=== PATIENT | female | born 1980 | race African-American/Black ===

== ENCOUNTER 2017-10-08 17:06 | Observation (INO) | payer MEDICARE, MEDICAID ==
[~2017-10-08] VITALS: Ht 157.5 cm; Wt 68.4 kg
[2017-10-08] MEDS ORDERED: ondansetron/PF 4mg/2ml inj IV ONE (18:30)
[2017-10-08] MEDS ORDERED: normal saline 1000ML IV soln IVB ONE ×2 (18:30)
[2017-10-08] MEDS ORDERED: pantoprazole 40 MG vial IV ONE (18:35)
[2017-10-08] MEDS ORDERED: ondansetron 4mg rapidly disintigrating tab PO ONE (19:10)
[2017-10-08 19:30] LABS: ALANINE AMINOTRANSFERASE 20 U/L (12-78); ALBUMIN 3.9 G/DL (3.4-5.0); ALBUMIN/GLOBULIN RATIO 0.8 (1.1-1.5); ALKALINE PHOSPHATASE 86 IU/L (46-116); ASPARTATE AMINO TRANSFERASE 36 U/L (10-37); BILIRUBIN,TOTAL 0.3 MG/DL (0.1-1.0); BLOOD UREA NITROGEN 17 MG/DL (7-18); CALCIUM 8.8 MG/DL (8.5-10.1); CHLORIDE 104 MMOL/L (99-107); CREATININE 0.81 MG/DL (0.40-0.90); ETHANOL 0.085 GM/DL (0.0-0.010); GLUCOSE 53 MG/DL (70-104); LIPASE 106 U/L (73-393); POTASSIUM 4.3 MMOL/L (3.5-5.1); SODIUM 140 MMOL/L (135-145); TOTAL PROTEIN 8.7 G/DL (6.4-8.2); eGFR 79 ML/MIN
[2017-10-08 19:35] LABS: RED BLOOD COUNT 5.07 X10'6 (4.20-5.60); RETICULOCYTE % (AUTO) 2.9 % (0.5-1.5)
[2017-10-08 19:41] LABS: ANION GAP 22 (8-16)
[2017-10-08 19:44] LABS: TOTAL CARBON DIOXIDE 13.8 MMOL/L (24-32)
[2017-10-08] MEDS ORDERED: iohexol 300mg/ml 100ml inj. ONE (19:59)
[2017-10-08 20:10] LABS: BASOPHILS # (AUTO) 0.1 X10'3 (0-0.2); BASOPHILS % (AUTO) 0.5 % (0-1); EOSINOPHILS # (AUTO) 0.4 X10'3 (0-0.9); EOSINOPHILS % (AUTO) 2.1 % (0-6); HEMATOCRIT 24.5 % (35.0-45.0); HEMOGLOBIN 7.1 g/dl (12.0-16.0); LYMPHOCYTES # (AUTO) 3.1 X10'3 (1.1-4.8); LYMPHOCYTES % (AUTO) 18.1 % (21-51); MEAN CORPUSCULAR HEMOGLOBIN 15.3 PG (27.0-31.0); MEAN CORPUSCULAR VOLUME 52.9 FL (78-98); MEAN PLATELET VOLUME 7.7 FL (7.4-10.4); MONOCYTES # (AUTO) 0.6 X10'3 (0-0.9); MONOCYTES % (AUTO) 3.3 % (2-12); NEUTROPHILS # (AUTO) 12.9 X10'3 (1.8-7.7); PLATELET COUNT 111 X10'3 (140-440); RED BLOOD COUNT 4.62 X10'6 (4.20-5.60); RED CELL DISTRIBUTION WIDTH 24.4 % (11.5-14.5); WHITE BLOOD COUNT 16.9 X10'3 (4.5-11.0)
[2017-10-08 20:21] LABS: PARTIAL THROMBOPLASTIN TIME 25 SECONDS (22-32); PROTHROMBIN TIME 10.1 SECONDS (9.0-12.0)
[2017-10-08 20:23] LABS: HCG SERUM QL NEGATIVE
[2017-10-08 20:26] LABS: CLARITY,URINE CLEAR (Clear); COLOR,URINE YELLOW (Yellow); GLUCOSE, URINE NEGATIVE (Neg); KETONES,URINE 40 mg/dl (Neg); LEUKOCYTE ESTERASE ,URINE NEGATIVE (Neg); NITRITES, URINE NEGATIVE (Neg); OCCULT BLOOD,URINE NEGATIVE (Neg); PH,URINE 5.5 (4.8-8.0); PROTEIN,URINE NEGATIVE (Neg); UROBILINOGEN,URINE 0.2 E.U/dL (0.2-1.0)
[2017-10-08 20:35] LABS: UA COLLECTION TYPE STRAIGHT CATH; URINE AMPHETAMINE SCREEN POSITIVE (Neg); URINE BARBITUATE SCREEN NEGATIVE (Neg); URINE BENZODIAZEPINES SCREEN NEGATIVE (Neg); URINE CANNABINOID SCREEN POSITIVE (Neg); URINE COCAINE SCREEN NEGATIVE (Neg); URINE METHADONE SCREEN NEGATIVE (Neg); URINE OPIATE SCREEN NEGATIVE (Neg); URINE PHENCYCLIDINE SCREEN NEGATIVE (Neg)
[2017-10-08 20:50] LABS: PLATELET ESTIMATE DECREASED
[2017-10-08 20:51] LABS: ANISOCYTOSIS 3+; HYPOCHROMASIA 3+; LARGE PLATELETS MODERATE
[2017-10-08 20:52] LABS: MICROCYTOSIS 3+
[2017-10-08 20:53] LABS: TARGET CELLS FEW
[2017-10-08 20:54] LABS: POLYCHROMASIA FEW; SCHISTOCYTES FEW
[2017-10-08] MEDS ORDERED: dextrose 50%-water 50ml dispensing syringe IV ONE ×2 (21:28→21:35)
[2017-10-08] MEDS ORDERED: LORazepam 2 mg/ml vial IV ONE (22:05)
[2017-10-08] MEDS ORDERED: normal saline 1000ml 1,000 ML IV SCH (23:29)
[2017-10-08] MEDS ORDERED: mag hydrox/Alum hydrox/simeth 30ml oral suspension PO PRN (23:30)
[2017-10-08] MEDS ORDERED: ondansetron/PF 4mg/2ml inj IV PRN (23:30)
[2017-10-08] MEDS ORDERED: magnesium hydroxide 30ml (MOM) UD suspension PO PRN (23:30)
[2017-10-08] MEDS ORDERED: acetaminophen 325mg tablet PO PRN (23:30)
[2017-10-08] MEDS ORDERED: LORazepam 2 mg/ml vial IV PRN (23:35)
[2017-10-08] MEDS: morphine 4 MG/ML inj SYRINge IV PRN (23:49)
[2017-10-09 00:30] VITALS: BP 134/79
[2017-10-09] MEDS ORDERED: HYDROcodone/acetaminophen 10/325mg tab PO PRN (01:55)
[2017-10-09 03:00] VITALS: BP 125/65
[2017-10-09] MEDS: morphine 4 MG/ML inj SYRINge IV PRN (03:37)
[2017-10-09 05:51] LABS: BASOPHILS # (AUTO) 0.1 X10'3 (0-0.2); BASOPHILS % (AUTO) 0.8 % (0-1); EOSINOPHILS # (AUTO) 0.3 X10'3 (0-0.9); EOSINOPHILS % (AUTO) 2.4 % (0-6); LYMPHOCYTES # (AUTO) 4.8 X10'3 (1.1-4.8); LYMPHOCYTES % (AUTO) 35.3 % (21-51); MEAN CORPUSCULAR HEMOGLOBIN 15.3 PG (27.0-31.0); MEAN CORPUSCULAR VOLUME 52.8 FL (78-98); MEAN PLATELET VOLUME 8.1 FL (7.4-10.4); MONOCYTES # (AUTO) 0.5 X10'3 (0-0.9); MONOCYTES % (AUTO) 3.5 % (2-12); NEUTROPHILS # (AUTO) 7.9 X10'3 (1.8-7.7); PLATELET COUNT 95 X10'3 (140-440); RED BLOOD COUNT 3.94 X10'6 (4.20-5.60); RED CELL DISTRIBUTION WIDTH 24.4 % (11.5-14.5); WHITE BLOOD COUNT 13.6 X10'3 (4.5-11.0)
[2017-10-09 06:19] LABS: ALANINE AMINOTRANSFERASE 20 U/L (12-78); ALBUMIN 3.2 G/DL (3.4-5.0); ALBUMIN/GLOBULIN RATIO 0.9 (1.1-1.5); ALKALINE PHOSPHATASE 69 IU/L (46-116); ANION GAP 12 (8-16); ASPARTATE AMINO TRANSFERASE 30 U/L (10-37); BILIRUBIN,TOTAL 0.5 MG/DL (0.1-1.0); BLOOD UREA NITROGEN 12 MG/DL (7-18); BUN/CREATININE RATIO 13.6 (6.6-38.0); CHLORIDE 106 MMOL/L (99-107); CREATININE 0.88 MG/DL (0.40-0.90); GLUCOSE 126 MG/DL (70-104); POTASSIUM 3.5 MMOL/L (3.5-5.1); SODIUM 137 MMOL/L (135-145); TOTAL CARBON DIOXIDE 18.7 MMOL/L (24-32); TOTAL PROTEIN 6.8 G/DL (6.4-8.2); eGFR 87 ML/MIN
[2017-10-09 06:37] LABS: HEMATOCRIT 20.8 % (35.0-45.0)
[2017-10-09 06:39] LABS: PLATELET ESTIMATE DECREASED
[2017-10-09 06:41] LABS: ANISOCYTOSIS 3+; HYPOCHROMASIA 2+; MICROCYTOSIS 3+; POLYCHROMASIA FEW
[2017-10-09 06:42] LABS: ELLIPTOCYTES FEW; STOMATOCYTES 2+
== END 2017-10-09 06:30 | disposition left against medical advice (07) ==
LOC: ER 17:07 → ED HOLD 23:29 → PCU 3S 10-09 00:30
PROVIDERS: ADMIT Internal Medicine; ATTEND Internal Medicine
DX: D57.1 Sickle-cell disease without crisis (principal); F17.210 Nicotine dependence, cigarettes, uncomplicated; F12.90 Cannabis use, unspecified, uncomplicated; F15.90 Other stimulant use, unspecified, uncomplicated; R41.82 Altered mental status, unspecified; E87.2 Acidosis; K92.2 Gastrointestinal hemorrhage, unspecified; F10.129 Alcohol abuse with intoxication, unspecified; Z86.2 Personal history of diseases of the blood and blood-forming organs and certain disorders involving the immune mechanism
CPT/HCPCS: 36415; 70450; 71045; 74177; 80053; 80305; 80320; 80329; 81003; 82948; 83605; 83690; 84145; 84443; 84703; 85025; 85610; 85730; 86885; 86900; 86901; 87040; 87070; 87077; 87186; 96361; 96374; 96375; 96376; 99285; A6266; C9113; G0378; J2060; J2270; J2405; J7030; Q9967; 85045

== ENCOUNTER 2017-10-09 12:29 | Emergency (ER) | payer MEDICARE, MEDICAID ==
[~2017-10-09] VITALS: Ht 157.5 cm; Wt 72.2 kg
[2017-10-09 15:47] VITALS: BP 121/79
[2017-10-09 16:06] LABS: BASOPHILS % (AUTO) 0.4 % (0-1); EOSINOPHILS # (AUTO) 0.2 X10'3 (0-0.9); EOSINOPHILS % (AUTO) 1.9 % (0-6); HEMATOCRIT 22.7 % (35.0-45.0); LYMPHOCYTES # (AUTO) 3.7 X10'3 (1.1-4.8); LYMPHOCYTES % (AUTO) 32.9 % (21-51); MEAN CORPUSCULAR HEMOGLOBIN 15.3 PG (27.0-31.0); MEAN CORPUSCULAR VOLUME 52.7 FL (78-98); MEAN PLATELET VOLUME 8.3 FL (7.4-10.4); MONOCYTES # (AUTO) 0.6 X10'3 (0-0.9); MONOCYTES % (AUTO) 5.1 % (2-12); NEUTROPHILS # (AUTO) 6.7 X10'3 (1.8-7.7); NEUTROPHILS % (AUTO) 59.7 % (42-75); PLATELET COUNT 124 X10'3 (140-440); RED BLOOD COUNT 4.32 X10'6 (4.20-5.60); WHITE BLOOD COUNT 11.2 X10'3 (4.5-11.0)
[2017-10-09 16:14] LABS: ALANINE AMINOTRANSFERASE 25 U/L (12-78); ALBUMIN 3.7 G/DL (3.4-5.0); ALBUMIN/GLOBULIN RATIO 0.9 (1.1-1.5); ALKALINE PHOSPHATASE 79 IU/L (46-116); ANION GAP 11 (8-16); ASPARTATE AMINO TRANSFERASE 38 U/L (10-37); BILIRUBIN,TOTAL 0.4 MG/DL (0.1-1.0); BLOOD UREA NITROGEN 8 MG/DL (7-18); BUN/CREATININE RATIO 10.8 (6.6-38.0); CALCIUM 8.7 MG/DL (8.5-10.1); CHLORIDE 105 MMOL/L (99-107); CREATININE 0.74 MG/DL (0.40-0.90); GLUCOSE 91 MG/DL (70-104); HEMOGLOBIN 6.6 g/dl (12.0-16.0); POTASSIUM 3.9 MMOL/L (3.5-5.1); SODIUM 138 MMOL/L (135-145); TOTAL CARBON DIOXIDE 22.1 MMOL/L (24-32); TOTAL PROTEIN 7.8 G/DL (6.4-8.2); eGFR > 90 ML/MIN
[2017-10-09] MEDS ORDERED: acetaminophen 325mg tablet PO ONE (16:55)
== END 2017-10-09 17:16 | disposition home or self-care (01) ==
LOC: ER 12:29
DX: G89.29 Other chronic pain (principal); M54.5 Low back pain; F12.10 Cannabis abuse, uncomplicated; F15.10 Other stimulant abuse, uncomplicated; F17.200 Nicotine dependence, unspecified, uncomplicated; Z88.0 Allergy status to penicillin; Z88.5 Allergy status to narcotic agent
CPT/HCPCS: 36415; 80053; 85025; 99284

== ENCOUNTER 2017-12-14 14:40 | Emergency (ER) | payer MEDICARE, MEDICAID ==
[~2017-12-14] VITALS: Ht 157.5 cm; Wt 72.0 kg
[2017-12-14 15:09] VITALS: BP 139/86
[2017-12-14] MEDS ORDERED: ACET-2119 PO (16:15)
[2017-12-14] MEDS ORDERED: ketorolac trometh. 30mg/ml inj. IM ONE (16:15)
[2017-12-14] MEDS ORDERED: IBUP-1984 PO (16:15)
== END 2017-12-14 16:32 | disposition home or self-care (01) ==
LOC: ER 14:41
DX: G89.29 Other chronic pain (principal); M54.9 Dorsalgia, unspecified; F12.10 Cannabis abuse, uncomplicated; F15.10 Other stimulant abuse, uncomplicated; Z88.0 Allergy status to penicillin; Z88.5 Allergy status to narcotic agent
CPT/HCPCS: 96372; 99283; J1885